=== PATIENT | female | born 1985 | race Caucasian/White ===

== ENCOUNTER 2024-10-11 12:38 | Emergency (ER) | payer BC, SELFPAY ==
--- OUTSIDE RECORDS SUMMARY | 2024-10-11 12:40 | XMS_ITS | Clinical Summary ---
Author Organization [facility] Address [address] , [address] [place] [address] Phone Care Team Providers Care Endoscopy Nurse Name Role Phone Aura Moffett Unavailable Conditions or Problems Problem Name Problem Code Onset Date Status Entry Date Provider Comment Standard Description Annotate Migraine, menstrual 44484076 (SNOMED CT) Active Cory Verdugo MD Menstrual migraine Memory deficit 614353647 (SNOMED CT) Active Cory Verdugo MD Memory impairment Anxiety disorder 516109512 (SNOMED CT) Active Cory Verdugo MD Anxiety disorder Insomnia NEC 275038356 (SNOMED CT) Active Cory Verdugo MD Insomnia Chronic migraine 063704079 (SNOMED CT) Active Cory Verudgo MD Transformed migraine Medications Medication Instructions Start Date Stop Date Generic Name NDC Provider PROPRANOLOL HCL ER 80 MG [id number] 1 capsule or 80 mg/day by mouth propranolol [id number] Cory Verdugo MD TOPIRAMATE 25 MG TABS 1 tablet by mouth as directed : 25 mg per night for 2 weeks; then increase by 25 mg per night every 2 weeks until 100 mg per night or until pain controlled 03/05 topiramate 56120242438 Cory Verdugo MD QULIPTA 10 MG TABS 20 mg per day. May increase by 10 mg every week until 60 mg per day if lower doze not helping atogepant [id number] Cory Verdugo MD NORTRIPTYLINE HCL 75 MG CAPS Take 1 capsule by mouth every evening 03/05 nortriptyline [id number] Cory Verdugo MD SUMATRIPTAN SUCCINATE 100 MG TABS Take 1/2 tablet by mouth as directed as needed : half to 1 tab at onset of headache (STRONG); may repeat in 2 hour as needed; max 1.5 tabs per day; no more than 9 days use per month 03/05 sumatriptan succinate [id number] Cory Verdugo MD ATIVAN 1 MG TABS 1 tablet by mouth as directed : 1 mg 2 hour before MRI. May repeat as needed with 1 mg up to maximum of 3 mg before MRI. No driving or operate heavy machinery for 24 hour after taking this med 03/05 lorazepam [id number] Cory Verdugo MD CYCLOBENZAPRINE HCL 10 MG TABS Take 1 Tablet (10 mg) by mouth 3 times daily if needed for Muscle Spasm (headache).* cyclobenzaprine [id number] Cory Verdugo MD BUPROPION HCL ER (XL) 150 MG [id number] Take 1 Tablet (150 mg) by mouth once daily in the morning.* bupropion hcl [id number] Cory Verdugo MD [id number] FFEINE 50-325-40 MG TABS Take 1 Tablet by mouth every 4 hours if needed for Headache. Max 6 doses per day. Max acetaminophen dose 4000mg in 24 hrs.* butalbital-acetam inophen-caff 93074631290 Cory Verdugo MD TOPIRAMATE 25 MG TABS 1 tablet by mouth as directed : 25 mg per night for 2 weeks; then increase by 25 mg per night every 2 weeks until 100 mg per night or until pain controlled 03/05 topiramate [id number] Cory Verdugo MD NORTRIPTYLINE HCL 75 MG CAPS Take 1 capsule by mouth every evening 03/05 nortriptyline 69004706184 Cory Verdugo MD NORTRIPTYLINE HCL 75 MG CAPS Take 1 capsule by mouth every evening 12/28 nortriptyline [id number] Rosie Chacko BETTY NORTRIPTYLINE HCL 10 MG CAPS 1 capsule by mouth as directed : 20 mg per night; then increase by 10 mg/night every 2 weeks until maximum 70 mg/night or until pain controlled 12/01 nortriptyline 14678625908 Cory Verdugo MD NORTRIPTYLINE HCL 10 MG CAPS 2 capsule by mouth as directed : 20 mg per night; then increase by 10 mg/night every 2 weeks until maximum 70 mg/night or until pain controlled 12/28 nortriptyline 15652552472 Cory Verdugo MD SUMATRIPTAN SUCCINATE 25 MG TABS Take 1 tablet by mouth every two hours as needed 12/01 sumatriptan succinate 09250146254 Cory Verdugo MD NORTRIPTYLINE HCL 10 MG CAPS 1 capsule by mouth as directed : 20 mg per night; then increase by 10 mg/night every 2 weeks until maximum 70 mg/night or until pain controlled 12/01 nortriptyline 49868498504 Cory Verdugo MD SUMATRIPTAN SUCCINATE 100 MG TABS Take 1/2 tablet by mouth as directed as needed : half to 1 tab at onset of headache (STRONG); may repeat in 2 hour as needed; max 1.5 tabs per day; no more than 9 days use per month 03/05 sumatriptan succinate [id number] Cory Verdugo MD ATIVAN 1 MG TABS 1 tablet by mouth as directed : 1 mg 2 hour before MRI. May repeat as needed with 1 mg up to maximum of 3 mg before MRI. No driving or operate heavy machinery for 24 hour after taking this med 03/05 lorazepam [id number] Cory Verdugo MD TRAZODONE HCL 50 MG TABS Take 1-2 tablet every night trazodone 16277116869 Cory Verdugo MD IBUPROFEN 800 MG TABS Take 1 tablet by mouth three times a day as needed IBUPROFEN Cory Verdugo MD SUMATRIPTAN SUCCINATE 25 MG TABS Take 1 tablet by mouth every two hours as needed 12/01 sumatriptan succinate 61095324473 Cory Verdugo MD AZITHROMYCIN 250 MG TABS Take 500 mg today and then 250 mg days 2-5 12/01 azithromycin 44277758188 Cory Verdugo MD SERTRALINE HCL 100 MG TABS Take 2 tablet by mouth once a day sertraline 46724434519 Cory Verdugo MD TRAZODONE HCL 50 MG TABS Take 1-2 tablets at bedtime 12/01 trazodone 38137011369 QIEUSER QIEUSER SUMATRIPTAN SUCCINATE 25 MG TABS Take 1 Tablet (25 mg) by mouth every 2 hours if needed for Migraine. Max dose: 200mg per 24 hrs. 12/01 sumatriptan succinate [id number] QIEUSER QIEUSER SERTRALINE HCL 100 MG TABS TAKE 2 TABLETS [200MG] BY MOUTH ONCE A DAY 12/01 sertraline 93005487992 QIEUSER QIEUSER IBUPROFEN 800 MG TABS Take 1 Tablet (800 mg) by mouth 3 times daily if needed for Pain. 12/01 IBUPROFEN QIEUSER QIEUSER AZITHROMYCIN 250 MG TABS Take 500 mg today and then 250 mg days 2-5 12/23 azithromycin [id number] QIEUSER QIEUSER Medications Administered No information available. Allergies, Adverse Reactions, Alerts No information available. Results Date Name Value Unit Range Flag Description Internal Other: Observation data from Authorization.pdf HIECONSENT Y Consent To Release information to the [employer] ([employer]) Office Visit: Office Visit braulio [place] fax MEDS REVIEW Done Documenta tion of current medications (procedure) Plan of Care Type Date Detail Pending order Follow up [facility] Pending order Follow up [facility] Pending order Patient Instruct ions Pending order Follow up with N eurologist or LEXY Pending order MRI-Brain W/O Pending order Patient Instruct ions Procedures Code Procedure Name Date Entry Date ORDERS Patient Instructions [id number] Documentation of current medicatio ns ORDERS Follow up with Neurologist or LEXY [id number] MRI Brain W/O [id number] MRI-Brain W/O ORDERS Patient Instructions [facility]-[id number] Documentation of current medicatio ns Vital Signs Date Name Value Unit Description Heart Rate 66 /min pulse rate Immunizations No information available. Advance Directives No information available.
--- OUTSIDE RECORDS SUMMARY | 2024-10-11 12:40 | XMS_ITS | Encounter Summary ---
Author Organization [facility] Address [address] [place] [address] Care Team Providers Care Cloth Bleaching Range Back Tender Name Role Phone Brenna Hurd Primary Care Provider [phone] Encounter Details Date Type Department Care Team (Late st Contact Info) Description 09/07/2021 Documentation Only INTERFACED REPORT Unknown, Provider Social History Tobacco Use Types Packs/Day Years Used Date Smoking Tobacco: Never Smokeless Tobacco: Never Alcohol Use Standard Drinks/Week Comments No 0 (1 standard drink = 0.6 oz pur e alcohol) occ Comments No Sex and Gender Information Value Date Recorded Sex Assigned at Not on file 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 No / Unsure 09/06/2021 7:58 PM WHEEL POLISHER documented as of this encounter Plan of Treatment Not on file documented as of this encounter Visit Diagnoses Not on filedocumented in this encounter Care Teams Cloth Bleaching Range Back Tender Relationship Specialty Start Date End Date Brenna Hurd PCP - General 01/27/13 documented as of this encounter
--- OUTSIDE RECORDS SUMMARY | 2024-10-11 12:40 | XMS_ITS | Referral Summary ---
Author Organization [facility] Address [address] [place] [id number] Care Team Providers Care C Unix Developer Name Role Phone [email or web address] Primary Care Provider [phone] Allergies No known active allergies Medications Vit-Fe Fumarate-FA ( MULTIVITAMIN PLUS IRON) 27-0.8 MG TABS Take 1 tablet by mouth daily Active Ranitidine HCl (ZANTAC PO) Active diphenhydrAMINE (BENADRYL) 25 MG tablet Take 1 tablet (25 mg) by mouth every 6 hours as needed for itching 56 tablet 0 5 Active Emollient (CERAVE) LOTN Externally apply topically 4 times daily as needed 355 mL 0 5 Active norethindrone-eth inyl estradiol-iron (ESTROSTEP FE) 1-20/1-30/1-35 MG-MCG TABS Take by mouth daily Active PANTOPRAZOLE SODIUM PO Active Ferrous Sulfate (IRON SUPPLEMENT PO) Active meclizine (ANTIVERT) 25 MG tablet Take 1 tablet (25 mg) by mouth 3 times daily as needed for dizziness 10 tablet 0 5 Active metoclopramide (REGLAN) 10 MG tablet Take 1 tablet (10 mg) by mouth 4 times daily as needed (nausea, headache) 10 tablet 0 5 Active HYDROcodone-aceta minophen (NORCO) 5-325 MG per tablet Take 1-2 tablets by mouth every 6 hours as needed for moderate to severe pain 10 tablet 0 5 Active oxyCODONE (ROXICODONE) 5 MG tablet Take 1-2 tablets (5-10 mg) by mouth every 6 hours as needed for severe pain 10 tablet Active Social History Tobacco Use Types Packs/Day Years Used Date Smoking Tobacco: Never Smokeless Tobacco: Never Alcohol Use Standard Drinks/Week Comments No 0 (1 standard drink = 0.6 oz pur e alcohol) occ Adolescent Education Answer Date Record ed Getting School Help Needed Not on file 06/19 Comments No Sex and Gender Information Value Date Recorded Sex Assigned at Not on file Legal 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 Gender Identity Not on file Sexual Orientation Not on file Last Filed Vital Signs Vital Sign Reading Time Taken Comments Blood Pressure 111/63 09/06/2021 10:24 PM POWERHOUSE OPERATOR Pulse 69 09/06/2021 10:24 PM POWERHOUSE OPERATOR Temperature 36.7 C (98.1 F) 09/06/2021 8:02 PM POWERHOUSE OPERATOR Respiratory Rate 16 09/06/2021 10:24 PM POWERHOUSE OPERATOR Oxygen Saturation 95% 09/06/2021 10:25 PM POWERHOUSE OPERATOR Inhaled Oxygen Concentration - - Weight 75.8 kg (167 lb) 05/26/2015 8:33 PM CDT Height 170.2 cm (5' 7) 05/26/2015 8:33 PM CDT Body Mass Index 26.16 05/26/2015 8:33 PM CDT Plan of Treatment Not on file Insurance [facility] Care Teams C Unix Developer Relationship Specialty Start Date End Date Brenna Hurd [facility] - General 01/27/13
--- OUTSIDE RECORDS SUMMARY | 2024-10-11 12:40 | XMS_ITS | Clinical Summary ---
Author Organization [facility] Address [place], [place] [address] Care Team Providers Care Waste Paper Hammermill Operator Name Role Phone Brenna Hurd MD Primary Care Provide r Sommer Walker RD Unavailable [phone] Allergies No known active allergies Medications cyclobenzaprine (FLEXERIL) 10 mg tabletIndicatio ns:Chronic daily headache Take 1 Tablet (10 mg) by mouth 3 times daily if needed for Muscle Spasm (headache). 30 Tablet 5 03/01/20 24 Active sertraline (ZOLOFT) 100 mg tabletIndicatio ns:Anxiety Take 1 Tablet (100 mg) by mouth once daily. 100 Tablet 3 03/01/20 24 Active buPROPion (WELLBUTRIN XL) 150 mg Extended-Releas e tabletIndicatio ns:Anxiety Take 1 Tablet (150 mg) by mouth once daily in the morning. 90 Tablet 3 03/01/20 24 Active acetaminophen-c affeine-butalbi salome (FIORICET) 325-40-50 mgIndications:M igraine with aura, not intractable, without status migrainosus Take 1 Tablet by mouth every 4 hours if needed for Headache. Max 6 doses per day. Max acetaminophen dose 4000mg in 24 hrs. 20 Tablet 03/01/20 24 Active traZODone (DESYREL) 50 mg tabletIndicatio ns:Anxiety state TAKE ONE OR TWO TABLETS BY MOUTH DAILY AT BEDTIME 180 Tablet 05/30/20 24 Active metFORMIN (GLUCOPHAGE XR) 500 mg Extended-Releas e tabletIndicatio ns:Class 1 obesity with body mass index (BMI) of 30.0 to 30.9 in adult, unspecified obesity type, unspecified whether serious comorbidity present,Insulin resistance Take 1 tablet (500mg) oral daily with a meal for 2 weeks then if tolerating okay increase to 2 tablets (1000mg) oral daily with meal. 180 Tablet 08/17/20 24 Active cholecalciferol (VITAMIN D3) 50,000 unit capsuleIndicati ons:Vitamin D deficiency Take 1 Capsule (50,000 units) by mouth once weekly for 8 doses. 8 Capsule 08/03/20 24 025 Active Problems Problem Noted Date Diagnosed Date Generalized anxiety disorder 11/11/2017 Low grade squamous intraepit helial lesion (LGSIL) on Papanicolaou smear of cervix 06/15/2012 Overview (08/25/2022): 06/15/2012: LSIL 07/27/2012: [place] - Suspicious for HPV 07/19/2013: NIL 06/25/2014: ASCUS / HPV negative 04/15/2015: NIL 07/16/2016: NIL 10/21/2017: NIL/HPV negative 07/22/2022: NIL/HPV negative Plan: Pap and HPV 07/2025 Mild anemia 05/13/2011 Headache(784.0) 06/27/2007 Resolved Problems Problem Noted Date Diagnosed Date Resolved Date Supervision of normal first 07/25/2014 11/11/2017 Overview (12/10/2014): Tdap given 12/10/2014. Dr. Nuno to deliver patient. Anxiety state, unspecified 06/27/2007 0 11/11/2017 Encounters Date Type Department Care Team Description 10/11/2024 Nurse Triage [facility] [address] [place] [address] Brenna Hurd MD Diarrhea; Abdominal Pain 10/05/2024 1:00 PM CLOSING MANAGER Telemedicine [facility] [place] [address] [place] [address] Teresa Sabillon PA Telehealth; Follow Up ([facility] follow up ) 10/02/2024 Travel 09/18/2024 3:00 PM CLOSING MANAGER [facility] [address] [place] [address] Telehealth ([facility] follow up) 09/17/2024 Travel 08/17/2024 2:30 PM CLOSING MANAGER Telemedicine [facility] [place] [address] [place] [phone] Teresa Sabillon PA Telehealth; Follow Up ([facility] follow up ) 08/12/2024 Travel 08/07/2024 Telephone [facility] [place] [address] [place] [phone] Kristin Perez [address] Follow Up 08/01/2024 9:15 AM CLOSING MANAGER Orders Only [facility] [place] [address] [address] Lab, Farm Lab 07/31/2024 Travel 07/24/2024 Telephone [facility] [place] [address] [place] [phone] Teresa Sabillon PA Weight Management 07/18/2024 10:00 AM CLOSING MANAGER Telemedicine [facility] [place] [address] [place] [phone] [address] Medical Nutrition Therapy ([facility] initial, telehealth) 07/18/2024 9:00 AM CLOSING MANAGER Telemedicine [facility] [place] [address] [place] [phone] Teresa Sabillon PA Telehealth; Follow Up (Initial [facility] ) 07/17/2024 Travel from Last 3 Months Immunizations Name Administration Dates Next Due COVID-19 vaccine (Qeexo-Bio NTMobcart 30mcg/0.3mL) 12YO+ BIVALENT PF, MDV 07/22/2022 Human Papilloma Virus Vaccine 09/03/2008, 007 Influenza, IIV4 07/04/2022,,07/29/2020, 016,07/25/2014 Tdap 12/10/2014,09/03/2008 Family History Medical History Relation Name Comments Diabetes Father Geo Heart Disease Father Goe Heart attack, age 50s Cancer Maternal Grandfather Alex bladder Cancer-colon Maternal Grandfather Alex Cancer Maternal Grandmother Indu Unknown Diabetes Maternal Grandmother Indu Diabetes Maternal Uncle Anxiety disorder Mother Rubieatiffany Depression Mother Zoeatiffany Cancer-breast Paternal Grandmother Relation Name Status Comments Father Geo Alive Maternal Grandfather Alex Alive Maternal Grandmother Morjie Alive Maternal Uncle Mother Zoeann Alive Paternal Grandfather Paternal Grandmother (Age 40) Ca ncer-Breast Sister Mabel Alive Social History Tobacco Use Types Packs/Day Years Used Date Smoking Tobacco: Never Smokeless Tobacco: Never Tobacco Cessation:Counseling Given: Yes Alcohol Use Standard Drinks/Week Comments Yes 0 (1 standard drink = 0.6 oz pur e alcohol) 1x/month [facility] Utilities Answer Date Recorded Do you have trouble paying f or utilities (for example, heat, electricity, water, phone)? Yes 08/31/2023 PHQ-2 Answer Date Recorded PHQ-2 TOTAL SCORE 3 03/01/2024 Social Connections Answer Date Recorded Do you often feel lonely or isolated from those around you? 0 08/31/2023 Financial Resource Strain Answer Date R ecorded Difficulty of Paying Living Expenses 3 08/31/2023 Difficulty of Paying Living Expenses Not on file 08/31/2023 Food Insecurity Answer Date Recorded Do you worry your food will run out before you are able to buy more? 1 08/31/2023 Transportation Needs Answer Date Record ed Does lack of transportation keep you from medica l appointments? 1 08/31/2023 Does lack of transportation keep you from work, meetings or getting things that you need? 1 08/31/2023 Housing Stability Answer Date Recorded What is your housing situation today? 1 08/31/2023 Comments No Sex and Gender Information Value Date Recorded Sex Assigned at Not on file Legal Sex Female 5:44 AM CLOSING MANAGER Gender Identity Not on file Sexual Orientation Not on file Occupation Industry Job Start Date Job End Date Not on file Not on file Not on file Not on file Obstetrics History Para Term AB IAB SAB Ectopic Multiple Livin g Live Births 1 1 1 Date Outcome GA Total Labor Labor/2nd/3rd Weight Sex Type Anes PTL Priscilla A1 A5 Name Clin Para Last Filed Vital Signs Vital Sign Reading Time Taken Comments Blood Pressure 113/73 03/01/2024 2:58 PM CDT Pulse 74 03/01/2024 2:58 PM CDT Temperature 36.7 C (98 F) 08/31/2023 10:05 AM CLOSING MANAGER Respiratory Rate 16 08/31/2023 10:05 AM CLOSING MANAGER Oxygen Saturation 99% 03/01/2024 2:58 PM CDT Inhaled Oxygen Concentration - - Weight 90.3 kg (199 lb) 10/05/2024 12:43 PM CLOSING MANAGER Height 167.6 cm (5' 5.98) 10/05/2024 12:[address] Body Mass Index 32.14 10/05/2024 12:43 PM CLOSING MANAGER Plan of Treatment Upcoming Encounters Date Type Department Care Team (Late st Contact Info) Description 10/23/2024 10:00 AM CLOSING MANAGER Telemedicine [facility] [address] [place] [address] [place] [address] 11/23/2024 1:00 PM CDT Telemedicine [facility] [place] [address] [place] [phone] Teresa Sabillon PA [address] [place] [address] Health Maintenance Due Date Last Done Comments COVID-19 vaccine series ( season) 2024 07/22/2022, 07/02/2021, 06/02/2021 Influenza for age 9-49 05/13/2024 2, 06/02/2021, 07/29/2020, Additional history exists Tetanus booster 12/10/2024 12/10/2014, 09/03/2008 Depression screening for age 12+ 03/01/2025 03/01/2024, 07/22/2022, 05/01/2020, Additional history exists Pap test for age 21-65 07/22/2025 2, 07/22/2022, 10/21/2017, Additional history exists BMI (ht and wt on same day) for age 18+ 10/05/2025 10/05/2024, 09/18/2024, 08/17/2024, Additional history exists HIV for age 15-65 Completed 06/21/2014 Hepatitis C screening for age 18-79 Completed 06/21/2014 Tdap Completed 12/10/2014, 09/03/2008 Pneumococcal series for age 6-49 Aged Out No longer eligible based on patient's age to complete this topic Procedures Procedure Name Priority Date/Time Associated Diagnosis Comments LIPID PANEL W REFLEX MEASURED LDL Routine 08/01/2024 8:58 AM CLOSING MANAGER Class 1 obesity with body mass index (BMI) of 30.0 to 30.9 in adult, unspecified obesity type, unspecified whether serious comorbidity present Screening for metabolic disorder VITAMIN D 25 (DEFICIENCY) Routine 08/01/2024 8:58 AM CLOSING MANAGER Class 1 obesity with body mass index (BMI) of 30.0 to 30.9 in adult, unspecified obesity type, unspecified whether serious comorbidity present Encounter for vitamin deficiency screening INSULIN Routine 08/01/2024 8:58 AM CLOSING MANAGER Class 1 obesity with body mass index (BMI) of 30.0 to 30.9 in adult, unspecified obesity type, unspecified whether serious comorbidity present Screening for metabolic disorder TSH WITH REFLEX Routine 08/01/2024 8:58 AM CLOSING MANAGER Class 1 obesity with body mass index (BMI) of 30.0 to 30.9 in adult, unspecified obesity type, unspecified whether serious comorbidity present Screening for metabolic disorder COMP METABOLIC PANEL Routine 08/01/2024 8:58 AM CLOSING MANAGER Class 1 obesity with body mass index (BMI) of 30.0 to 30.9 in adult, unspecified obesity type, unspecified whether serious comorbidity present Screening for metabolic disorder HEMOGLOBIN Routine 08/01/2024 8:58 AM CLOSING MANAGER Class 1 obesity with body mass index (BMI) of 30.0 to 30.9 in adult, unspecified obesity type, unspecified whether serious comorbidity present HEMOGLOBIN A1C Routine 08/01/2024 8:58 AM CLOSING MANAGER Class 1 obesity with body mass index (BMI) of 30.0 to 30.9 in adult, unspecified obesity type, unspecified whether serious comorbidity present VITAMIN B12 Routine 08/01/2024 8:58 AM CLOSING MANAGER Class 1 obesity with body mass index (BMI) of 30.0 to 30.9 in adult, unspecified obesity type, unspecified whether serious comorbidity present Encounter for vitamin deficiency screening HPV HIGH RISK Routine 07/22/2022 9:20 AM CLOSING MANAGER Screening for cervical cancer ANTI HIV 1/2 Routine 06/21/2014 3:17 PM CDT ANTI HCV Routine 06/21/2014 3:17 PM CDT from Last 3 Months or Most Recently Relevant to Health Maintenance Results * HEMOGLOBIN A1C (08/01/2024 8:58 AM CLOSING MANAGER) HEMOGLOBIN A1C 5.4 <5.7 % of total Hgb [facility] Comment: For the purpose of screening for the presence of diabetes: <5.7% Consistent with the absence of diabetes 5.7-6.4% Consistent with increased risk for diabetes (prediabetes) > or =6.5% Consistent with diabetes This assay result is consistent with a decreased risk of diabetes. Currently, no consensus exists regarding use of hemoglobin A1c for diagnosis of diabetes in children. According to [place] Diabetes Association (ADA) guidelines, hemoglobin A1c <7.0% represents optimal control in non- diabetic patients. Different metrics may apply to specific patient populations. Standards of Medical Care in Diabetes(ADA). Blood BLOOD SPECIMEN / Unknown 08/01/2024 8:58 AM CLOSING MANAGER 08/01/2024 8:58 AM CLOSING MANAGER Teresa MORA CHEMISTRY Final Result [facility] [address] [place] [address], [facility] [address] [place] [address] * TSH WITH REFLEX (08/01/2024 8:58 AM CLOSING MANAGER) TSH W/REFLEX TO FT4 1.56 mIU/L [facility] caridad Valerio Comment: Reference Range > or = 20 Years 0.40-4.50 Ranges First trimester 0.26-2.66 Second trimester 0.55-2.73 Third trimester 0.43-2.91 Blood BLOOD SPECIMEN / Unknown 08/01/2024 8:58 AM CLOSING MANAGER 08/01/2024 8:58 AM CLOSING MANAGER Teresa MORA CHEMISTRY Final Result [facility] [address] [place] [address], [facility] [address] [place] [address] * (ABNORMAL) LIPID PANEL W REFLEX MEASURED LDL (08/01/2024 8:58 AM CLOSING MANAGER) CHOLESTEROL, TOTAL 176 <200 mg/dL [facility] ocaridad Sharmae HDL CHOLESTEROL 47(L) > OR = 50 mg/dL [facility] o Teodoro TRIGLYCERIDES 158(H) <150 mg/dL [facility] LDL-CHOLESTEROL 104(H) mg/dL (calc) [facility] o[facility] Sharmae Comment: Reference range: <100 Desirable range <100 mg/dL for primary prevention; <70 mg/dL for patients with CHD or diabetic patients with > or = 2 CHD risk factors. LDL-C is now calculated using the Ewa calculation, which is a validated novel method providing better accuracy than the Friedewald equation in the estimation of LDL-C. Juan Carlos WYNNE et al. LAITH. 2013;310(19): 9248-3956 (http://education.letsmote.com.BeneStream/faq/FOH714) CHOL/HDLC RATIO 3.7 <5.0 (calc) [facility] shital Valerio NON HDL CHOLESTEROL 129 <130 mg/dL (calc) [facility] Valerio Comment: For patients with diabetes plus 1 major ASCVD risk factor, treating to a non-HDL-C goal of <100 mg/dL (LDL-C of <70 mg/dL) is considered a therapeutic option. Blood BLOOD SPECIMEN / Unknown 08/01/2024 8:58 AM CLOSING MANAGER 08/01/2024 8:58 AM CLOSING MANAGER us Teresa MORA CHEMISTRY Final Result Performing Organization Address [facility] Co de Phone Number [facility] [address] [place] [address], [facility] [address] [place] [phone] * (ABNORMAL) VITAMIN D 25 (DEFICIENCY) (08/01/2024 8:58 AM CLOSING MANAGER) VITAMIN D,25-OH,TOTAL,IA 20(L) 30 - 100 ng/mL [facility] Valerio Comment: Vitamin D Status 25-OH Vitamin D: Deficiency: <20 ng/mL Insufficiency: 20 - 29 ng/mL Optimal: > or = 30 ng/mL For 25-OH Vitamin D testing on patients on D2-supplementation and patients for whom quantitation of D2 and D3 fractions is required, the Quest[facility]() 25-OH VIT D, (D2,D3), LC/MS/MS is recommended: order code [id number] (patients >2yrs). See Note 1 Note 1 For additional information, please refer to http://education.letsmote.com.BeneStream/faq/SBS885 (This link is being provided for informational/ educational purposes only.) Blood BLOOD SPECIMEN / Unknown 08/01/2024 8:58 AM CLOSING MANAGER 08/01/2024 8:58 AM CLOSING MANAGER us Teresa MORA SEND OUTS Final Result Performing Organization Address [facility]/ZIP Co de Phone Number [facility] [address] [place] [address], [place] [phone] [facility] [address] [facility] [place] [address] * HEMOGLOBIN (08/01/2024 8:58 AM CLOSING MANAGER) [facility] HEMOGLOBIN 12.1 11.7 - 15.5 g/dL [facility] reynaldo Valerio Blood BLOOD SPECIMEN / Unknown 08/01/2024 8:58 AM CLOSING MANAGER 08/01/2024 8:58 AM CLOSING MANAGER us Teresa MORA HEMATOLOGY Final Result Performing Organization Address [facility]/ZIP Co de Phone Number [facility] [address] [facility] [address], [facility] [address] [place] [address] * (ABNORMAL) INSULIN (08/01/2024 8:58 AM CLOSING MANAGER) [facility] INSULIN 21.3(H) uIU/mL [facility] Te[facility] Comment: Reference Range < or = 18.4 Risk: Optimal < or = 18.4 Moderate NA High >18.4 Adult cardiovascular event risk category cut points (optimal, moderate, high) are based on Insulin Reference Interval studies performed at [facility] in 2021. Blood BLOOD SPECIMEN / Unknown 08/01/2024 8:58 AM CLOSING MANAGER 08/01/2024 8:58 AM CLOSING MANAGER us Teresa MORA SEND OUTS Final Result [facility] [address] [place] [address], [facility] [address] [place] [address] * VITAMIN B12 (08/01/2024 8:58 AM CLOSING MANAGER) [facility] VITAMIN B12 325 200 - 1,100 pg/mL [facility] Comment: Please Note: Although the reference range for vitamin B12 is 200-1100 pg/mL, it has been reported that between 5 and 10% of patients with values between 200 and 400 pg/mL may experience neuropsychiatric and hematologic abnormalities due to occult B12 deficiency; less than 1% of patients with values above 400 pg/mL will have symptoms. Blood BLOOD SPECIMEN / Unknown 08/01/2024 8:58 AM CLOSING MANAGER 08/01/2024 8:58 AM CLOSING MANAGER Teresa MORA CHEMISTRY Final Result [facility] [address] [place] [address], [facility] [address] [place] [address] * COMP METABOLIC PANEL (08/01/2024 8:58 AM CLOSING MANAGER) [facility] GLUCOSE 90 65 - 99 mg/dL [facility] Comment: Fasting reference interval UREA NITROGEN (BUN) 11 7 - 25 mg/dL [facility] CREATININE 0.78 0.50 - 0.99 mg/dL [facility] EGFR 98 > OR = 60 mL/min/1. 73m2 [facility] BUN/CREATININE RATIO SEE NOTE: 6 22 (calc) [facility] Comment: Not Reported: BUN and Creatinine are within reference range. SODIUM 139 135 - 146 mmol/L [facility] POTASSIUM 4.0 3.5 - 5.3 mmol/L [facility] CHLORIDE 104 98 - 110 mmol/L [facility] CARBON DIOXIDE 29 20 - 32 mmol/L [facility] CALCIUM 8.6 8.6 - 10.2 mg/dL [facility] PROTEIN, TOTAL 6.7 6.1 - 8.1 g/dL [facility] ALBUMIN 4.2 3.6 - 5.1 g/dL [facility] GLOBULIN 2.5 1.9 - 3.7 g/dL (calc) [facility] ALBUMIN/GLOBULIN RATIO 1.7 1.0 - 2.5 (calc) [facility] BILIRUBIN, TOTAL 0.3 0.2 - 1.2 mg/dL [facility] ALKALINE PHOSPHATASE 76 31 - 125 U/L [facility] AST 13 10 - 30 U/L [facility] ALT 11 6 - 29 U/L [facility] Blood BLOOD SPECIMEN / Unknown 08/01/2024 8:58 AM CLOSING MANAGER 08/01/2024 8:58 AM CLOSING MANAGER us Teresa MORA CHEMISTRY Final Result Performing Organization Address [facility]/ZIP Co de Phone Number [facility] [address] [place] [address], [facility] [address] [place] [address] * HPV HIGH RISK (07/22/2022 9:20 AM CLOSING MANAGER) TYPE 16 Negative Negative 07/24/2022 12:43 PM CLOSING MANAGER [facility] LABORAT[facility] TYPE 18 Negative Negative 07/24/2022 12:43 PM CLOSING MANAGER [facility] LAB[facility] OTHER HIGH RISK TYPES Negative Negative 07/24/2022 12:43 PM CLOSING MANAGER [facility] TR[facility] LAB[facility]ORY Other (Cervical) Non-Blood / Unknown 07/22/2022 9:20 AM CLOSING MANAGER 07/23/2022 8:26 AM CLOSING MANAGER Narrative [facility] - 07/24/2022 12:43 PM CLOSING MANAGER HPV types 16, 18, 31, 33, 35, 39, 45, 51, 52, 56, 58, 59, 66 and 68 DNA were undetectable or below the pre-set threshold. Methodology: Accedo Liu 4800 HPV Test us Brenna Hurd MD MICROBIOLOGY Final Result [facility] [address] [place] [address], [place] * ANTI HCV (06/21/2014 3:17 PM CDT) HEPATITIS C ANTIBODY Non-Reacti ve Non-Reacti ve 06/22/2014 4:00 PM CDT [facility] TRAL LABORATORY Blood specimen (specimen) BLOOD SPECIMEN / Unknown Venipuncture / Unknown 06/21/2014 3:17 PM CDT 06/21/2014 3:18 PM CDT [facility] LABORATORY - 06/22/2014 4:00 PM CDT Antibodies to HCV not detected; does not exclude the possibility of exposure to HCV. Massiel MORA SEND OUTS Final R esult [facility] [address] [place] [address], [place] * ANTI HIV 1/2 (06/21/2014 3:17 PM CDT) Pathologist [facility] HIV-1/HIV-2 ANTIBODY Non-Reacti ve Non-Reacti ve 06/21/2014 8:58 PM CDT [facility] TRAL LABORATORY Blood specimen (specimen) BLOOD SPECIMEN / Unknown Venipuncture / Unknown 06/21/2014 3:17 PM CDT 06/21/2014 3:18 PM CDT Narrative [facility] - 06/21/2014 8:58 PM CDT HIV-1 p24 and HIV-1/HIV-2 Ab not detected Massiel MORA SEND OUTS Final R esult [facility] [address] [place] [id number], [place] from Last 3 Months or Most Recently Relevant to Health Maintenance Insurance [employer] Care Teams Waste Paper Hammermill Operator Relationship Specialty Start Date End Date Brenna Hurd MD [address] [place] [address] PCP - General 10/11/[address] [place] [address] Registered Dietitian Route Cdl Driver 07/18/24
--- OUTSIDE RECORDS SUMMARY | 2024-10-11 12:40 | XMS_ITS | Clinical Summary ---
Author Organization [facility] Address [address] [place] [address] Care Team Providers Care Front Maker Lockstitch Name Role Phone NelsoncliftonerikaBrenna Primary Care Provider [phone] Allergies No known active allergies Medications Vit-Fe [...] on file Legal Sex Female 3:15 AM RECORDING CLERK Gender Identity Not on file Sexual Orientation Not on file Last Filed Vital Signs Vital Sign Reading Time Taken Comments Blood Pressure 111/63 09/06/2021 10:24 PM RECORDING CLERK Pulse 69 09/06/2021 10:24 PM RECORDING CLERK Temperature 36.7 C (98.1 F) 09/06/2021 8:02 PM RECORDING CLERK Respiratory Rate 16 09/06/2021 10:24 PM RECORDING CLERK Oxygen Saturation 95% 09/06/2021 10:25 PM RECORDING CLERK Inhaled Oxygen Concentration - - Weight 75.8 kg (167 lb) 05/26/2015 8:33 PM CDT Height 170.2 cm (5' 7) 05/26/2015 8:33 PM CDT Body Mass Index 26.16 05/26/2015 8:33 PM CDT Plan of Treatment Not on file Insurance [facility] Care Teams Front Maker Lockstitch Relationship Specialty Start Date End Date Brenna Hurd [facility] - General 01/27/13
[2024-10-11 13:01] VITALS: BP 129/92; PULSE 77; RESP 18; TEMP 37.1; O2SAT 96; BMI 32.1
--- NOTE | 2024-10-11 14:13 | ED.GENADULT ---
HPI - General Adult General Date Seen: 10/11/24 Chief complaint: Abdominal Pain Stated complaint: Abdominal Pain Time Seen by Provider: 10/11/24 14:11 History of Present Illness HPI narrative: Pleasant 39-year-old female with a past medical history of patellofemoral knee disease, depression, presenting to the ER today for abdominal pain and diarrhea. She does note that she has some chronic trouble with loose stools that is been going on at least 9 or 10 years, since before the of her son. She has never been formally diagnosed with inflammatory bowel disease or irritable bowel syndrome or any other specific problem. She wonders if she might have IBS For the past 3 days she has had a new acute illness that includes increased diarrhea with frequent very loose watery stools. No bloody or mucousy stools. No nausea or vomiting. No objective fevers but she has felt chilled and warm from time to time. Along with this she has had intermittent crampy abdominal pain. The pain was primarily middle an epigastric and fairly severe last night but then got better and she was able to go to sleep. Pain was feeling better when she woke up this morning but then got worse mid morning. No clear trigger. No relationship to eating or drinking. The pain is throughout her abdomen. Not she has been here in the ER the pain is actually subsiding is back down to a 4/10 Urination has been normal. Related Data Home Medications ?Medication ?Instructions ?Recorded ?Confirmed sertraline 100 mg tablet 200 mg PO QDAY 07/29/22 10/11/24 trazodone 50 mg tablet 50 mg PO QHS 07/29/22 10/11/24 bupropion HCl 150 mg 24 hr tablet, 150 mg PO QAM 10/11/24 10/11/24 extended release metformin 500 mg tablet,extended 1,000 mg PO DAILY 10/11/24 10/11/24 release 24 hr omeprazole 20 mg capsule,delayed 20 mg PO DAILY 10/11/24 10/11/24 release propranolol 80 mg capsule,24 80 mg PO DAILY 10/11/24 10/11/24 hr,extended release Previous Rx's ?Medication ?Instructions ?Recorded ciprofloxacin HCl 500 mg tablet 500 mg PO BID #10 tabs 10/11/24 (Cipro) hydrocodone 5 mg-acetaminophen 325 1 tab PO Q6H PRN pain #10 tabs 10/11/24 mg tablet Allergies Allergy/AdvReac Type Severity Reaction Status Date / Time Penicillins AdvReac Nausea Verified 10/11/24 13:05 [facility] Medical History (Updated 10/11/24 @ 17:31 by Reid Ruffin MD) Anxiety ?F41.9 - Anxiety disorder, unspecified (ICD-10) Surgical History (Updated 07/29/22 @ 16:07 by Augusta Mahoney ~ [facility]) History of surgery on left wrist (09/05/21) ?Z98.890 - Other specified postprocedural states (ICD-10) H/O myringotomy ?Z98.890 - Other specified postprocedural states (ICD-10) History of tonsillectomy ?Z90.89 - Acquired absence of other organs (ICD-10) History of bilateral salpingectomy (11/16/17) ?Z90.79 - Acquired absence of other genital organ(s) (ICD-10) Family History (Updated 07/29/22 @ 16:07 by Augusta Mahoney ~ [facility], [facility]) Father Diabetes Social History (Updated 07/29/22 @ 16:05 by Augusta Mahoney ~ [facility], [facility]) Smoking Status: Never smoker Do you use any of these nicotine containing products: None Second hand tobacco smoke exposure: No How often do you have a drink containing alcohol: never How often do you have six or more drinks on one occasion: Never AUDIT-C Alcohol total score: 0 Non-prescribed substance use: denies use Exam Narrative: Exam Narrative: Constitutional: Appears well-developed and well-nourished. Alert. Conversant. Non toxic. HENT: Head: Atraumatic. Nose: Nose normal. Mouth/Throat: Oral mucosa is clear and moist. no trismus. Pharynx normal. Tonsils symmetric. No tonsillar enlargement, erythema, or exudate. Eyes: Conjunctivae normal. EOM normal. Pupils equal, round, and reactive to light. No scleral icterus. Neck: Normal range of motion. Neck supple. No tracheal deviation present. Cardiovascular: Normal rate, regular rhythm. No gallop. No friction rub. No murmur heard. Symmetric radial artery pulses Pulmonary/Chest: Effort normal. No stridor. No respiratory distress. No wheezes. No rales. No rhonchi . No tenderness. Abdominal: Soft. Bowel sounds normal. No distension. No mass. Left lower quadrant and left mid abdominal tenderness> right upper quadrant tenderness. No Robles sign. No flank tenderness. No right lower quadrant tenderness.. No rebound. No guarding. Musculoskeletal: RUE: Normal range of motion. No tenderness. No deformity LUE: Normal range of motion. No tenderness. No deformity RLE: Normal range of motion. No edema. No tenderness. No deformity LLE: Normal range of motion. No edema. No tenderness. No deformity Neurological: Alert and oriented to person, place, and time. Normal strength. CN II-VII intact. No sensory deficit. GCS eye subscore is 4. GCS verbal subscore is 5. GCS motor subscore is 6. Normal coordination Skin: Skin is warm and dry. No rash noted. No pallor. Normal capillary refill. Psychiatric: Normal mood. Normal affect. Const: Vital Signs, click to edit/add: Vital Signs - 24 hr 10/11/24 13:01 10/11/24 16:16 Temperature 98.8 F Pulse Rate [Pulse Oximeter] 77 69 Respiratory Rate 18 16 Blood Pressure [[facility] Upper Arm] 129/92 H 104/54 L Pulse Oximetry 96 99 Oxygen Delivery Me thod Room Air Room Air Course Course ED Course: Recheck-says her cramps and pain are improved, not completely gone the. Repeat evaluation still reveals mild left lower quadrant tenderness. No right lower quadrant tenderness. Mild upper tenderness. Still no guarding rebound or Robles sign in the upper quadrant Vital Signs Vital signs: Initial Vital Signs Temperature 98.8 F 10/11/24 13:01 Temperature Source Temporal Artery Scan 10/11/24 13:01 Pulse Rate 77 10/11/24 13:01 Respiratory Rate 18 10/11/24 13:01 Blood Pressure 129/92 H 10/11/24 13:01 Blood Pressure Mean 104 10/11/24 13:01 Blood Pressure Position Sitting 10/11/24 13:01 Pulse Oximetry 96 10/11/24 13:01 Oxygen Delivery Method Room Air 10/11/24 13:01 Vital Signs Temperature 98.8 F 10/11/24 13:01 Pulse Rate 77 10/11/24 13:01 Respiratory Rate 18 10/11/24 13:01 Blood Pressure 129/92 H 10/11/24 13:01 Pulse Oximetry 96 10/11/24 13:01 Oxygen Delivery Method Room Air 10/11/24 13:01 Temperature 98.8 F 10/11/24 13:01 Pulse Rate 69 10/11/24 16:16 Respiratory Rate 16 10/11/24 16:16 Blood Pressure 104/54 L 10/11/24 16:16 Pulse Oximetry 99 10/11/24 16:16 Oxygen Delivery Method Room Air 10/11/24 16:16 Medications Administered Medications: Discontinued Medications Generic Name Dose Route Start Last Admin Trade Name Tamanna PRN Reason Stop Dose Admin Sodium Chloride 500 mls @ 500 mls/hr 10/11/24 14:27 10/11/24 15:27 0.9 % Sodium Chloride 500 Ml IV 10/11/24 15:26 Infused .Q1H ONE Infusion Ketorolac Tromethamine 15 mg 10/11/24 14:27 10/11/24 14:39 Ketorolac 15 Mg/Ml Inj IVP 10/11/24 14:28 15 mg ONCE ONE Administration Ondansetron HCl 4 mg 10/11/24 14:27 10/11/24 15:27 Ondansetron 2 Mg/Ml Inj IVP 10/11/24 14:28 Not Given ONCE ONE Medical Decision Making MDM Narrative Medical decision making narrative: This patient presents with watery diarrhea and crampy abdominal pain located in the left lower quadrant, left mid abdomen, also epigastrium and right upper quadrant. The patient's symptoms and exam could be consistent with a viral GI infection. There is no high fever, bilious or bloody emesis, blood or mucous in the stool. However with her severity of pain, consider bacterial enteritis, colitis, diverticulitis, among others. Although she does have some tenderness in the right upper quadrant, she is more tender in the left lower quadrant. I have less suspicion for cholecystitis or gallbladder pathology. No recent travel or high risk exposure for baceraial pathogen. No recent antibiotics or risk factors for C. diff. I don't see any evidence for appendicitis, bowel obstruction, abscess, bowel perforation, or other surgical emergency. Labs show no concerning electrolyte disturbance or renal failure. CT scan shows indeterminate findings. She does have signs of an incidental right ovarian cyst with possible rupture. However she is not having any pain in the right lower quadrant. I do not think she needs any immediate gynecologic evaluation for this. She also has some nonspecific fluid or possible signs of mild colitis in her left colon which certainly could correlate with her diarrhea and symptoms. After meds given the patient is feeling better. At this point, the patient is non-septic appearing and well hydrated.I think the patient can be managed as an outpatient. At this point unclear if her colitis could be infectious (most likely) or autoimmune. She does report that she has a history of about 10 years of intermittent loose stools but has never had GI workup or evaluation for Crohn's. Her diarrhea has stopped while she is here in the ER. I will order an outpatient stool culture, so that if symptoms persist, she can bring a sample back to test for infectious etiologies. She will need outpatient follow-up with PCP to arrange colonoscopy a symptoms persist. Will start her empiric Cipro for potential bacterial enteritis. We have discussed oral rehydration strategies. They understand and can perform the needed interventions at home. We have discussed the signs and symptoms of worsening dehydration. They understand the need for immediate reevaluation if any of these symptoms occur. They are also directed to obtain close outpatient follow up within 2-3 days. Lab Data Labs: Lab Results 10/11/24 Range/Units 14:38 WBC 15.89 H (4.50-11.00) K/uL RBC 4.91 (4.00-5.20) m/uL Hgb 13.4 (12.0-16.0) gm/dL Hct 40.1 (33.0-51.0) % MCV 82 (80-100) fL MCH 27 (26-34) pg MCHC 33 (32-36) gm/dL RDW Coeff of Brian 12.9 (11.5-15.5) % Plt Count 299 (140-440) K/uL Neut % (Auto) 73.6 H (42.0-72.0) % Lymph % (Auto) 13.0 L (20-44) % [place] % (Auto) 4.5 (0.0-11.0) % Eos % (Auto) 8.6 H (0.0-7.0) % Baso % (Auto) 0.2 (0.0-3.0) % Neut # (Auto) 11.70 H (1.7-7.0) K/uL Lymph # (Auto) 2.10 (0.90-2.90) K/uL [place] # (Auto) 0.70 (0.00-0.90) K/UL Eos # (Auto) 1.40 H (0.00-0.50) K/uL Baso # (Auto) 0.00 (0.00-0.30) K/uL Abs Immat Gran (auto) 0.00 (0.00-0.30) K/uL Imm/Tot Granulo (auto) 0.1 % Sodium 139 (135-149) mmol/L Potassium 3.3 L (3.6-5.1) mmol/L Chloride 106 (96-114) mmol/L Carbon Dioxide 18 L (20-32) mmol/L Anion Gap 15 (7-15) mEq/L BUN 8 (5-24) mg/dL Creatinine 0.7 (0.5-1.5) mg/dL Estimated Creat Clear 99.01 Estimated GFR 111 ml/min Glucose 104 (60-115) mg/dL Calcium 9.0 (8.4-10.6) mg/dL Total Bilirubin 0.3 (0.1-1.5) mg/dL AST 18 (12-35) U/L ALT 15 (4-35) U/L Alkaline Phosphatase 67 (40-150) U/L Total Protein 7.5 (6.0-8.3) g/dL Albumin 4.6 (3.3-5.0) g/dL Lipase 59 (23-300) U/L HCG, Qual Negative (Negative) Imaging Data CT scan - abdomen: Attestation: I have reviewed the pertinent imaging results. Radiologist's impression: Impression: 1. Demonstration of somewhat loculated fluid and physiologic fluid within the right adnexa and cul-de-sac which may represent ovarian cystic and/or physiologic follicular rupture changes. If there remains persistent concern for ongoing pelvic pathology follow-up with pelvic sonogram is recommended. 2. Nonspecific fluid seen within the proximal colon which could represent minimal colitis change. No overt pericolonic inflammatory change is identified. 3. No other acute intra-abdominal abnormality. Discharge Plan Discharge Clinical Impression: Abdominal pain, Diarrhea Patient Disposition: Home, Self-Care Condition: Stable Instructions: Acute Diarrhea (ED), Abdominal Pain (ED) Additional Instructions: As we discussed, if you have more diarrhea at home, please bring a stool sample back to the hospital laboratory for testing to see if you have bacterial causes of your diarrhea Use the pain medication if needed for pain. Start on the antibiotics today to help treat in case this is a bacterial infection If you are not getting better within 24-48 hours, please recheck with your doctor or come back to the ER to be recent if you have worsening symptoms such as high fever, bloody stool, worsening pain, vomiting, weakness, please come back to the emergency room right away. Prescriptions: New ciprofloxacin HCl [Cipro] 500 mg tablet 500 mg PO BID Qty: 10 0RF hydrocodone-acetaminophen 5-325 mg tablet 1 tab PO Q6H PRN (Reason: pain) Qty: 10 0RF No Action sertraline 100 mg tablet 200 mg PO QDAY Patient Comments: TAKE TWO TABLETS BY MOUTH DAILY trazodone 50 mg tablet 50 mg PO QHS Patient Comments: TAKE 1 OR 2 TABLETS BY MOUTH AT BEDTIME metformin 500 mg tablet extended release 24 hr 1,000 mg PO DAILY Patient Comments: Take 1 tablet (500mg) by mouth daily with a meal for 2 weeks then if tolerating okay increase to 2 tablets (1000mg) daily with meal.* propranolol 80 mg capsule,extended release 24 hr 80 mg PO DAILY bupropion HCl 150 mg tablet extended release 24 hr 150 mg PO QAM omeprazole 20 mg capsule,delayed release(DR/EC) 20 mg PO DAILY Follow Up/Referrals: Brenna Hurd MD [Primary Care Provider] - Stand Alone Forms: [employer] Info Instructions
[2024-10-11] MEDS: 0.9 % SODIUM CHLORIDE 500 ML 500 ML IV (14:39)
[2024-10-11] MEDS: KETOROLAC 15 MG/ML inj IVP (14:39)
[2024-10-11 14:52] LABS: Basophils Percent Auto 0.2 % (0.0-3.0); Eosinophils Percent Auto 8.6 % (0.0-7.0); Hematocrit 40.1 % (33.0-51.0); Hemoglobin* 13.4 gm/dL (12.0-16.0); Immature Granulocytes Pct Auto 0.1 %; Mean Corpuscular HGB Conc 33 gm/dL (32-36); Mean Corpuscular Hemoglobin 27 pg (26-34); Mean Corpuscular Volume 82 fL (80-100); Monocytes Percent Auto 4.5 % (0.0-11.0); Neutrophils Percent Auto 73.6 % (42.0-72.0); Platelet Count* 299 K/uL (140-440); RDW Coefficient of Variation % 12.9 % (11.5-15.5); Red Blood Count 4.91 m/uL (4.00-5.20); White Blood Count* 15.89 K/uL (4.50-11.00)
[2024-10-11 14:56] LABS: Slide Review Reflex No
[2024-10-11 15:06] LABS: Albumin* 4.6 g/dL (3.3-5.0)
[2024-10-11 15:07] LABS: Chloride* 106 mmol/L (96-114); Potassium* 3.3 mmol/L (3.6-5.1); Sodium* 139 mmol/L (135-149)
[2024-10-11 15:09] LABS: Anion Gap 15 mEq/L (7-15); Aspartate Amino Transferase* 18 U/L (12-35); Bilirubin Total* 0.3 mg/dL (0.1-1.5); Carbon Dioxide* 18 mmol/L (20-32); Creatinine* 0.7 mg/dL (0.5-1.5); Est. Creatinine Clearance* 99.01; Estimated Glomerular Filt Rate 111 ml/min
[2024-10-11 15:10] LABS: Alanine Aminotransferase* 15 U/L (4-35); Alkaline Phosphatase* 67 U/L (40-150); Blood Urea Nitrogen* 8 mg/dL (5-24); Glucose* 104 mg/dL (60-115); Lipase* 59 U/L (23-300); Total Protein* 7.5 g/dL (6.0-8.3)
--- OUTSIDE RECORDS SUMMARY | 2024-10-11 15:20 | XMS_ITS | Clinical Summary ---
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 Gender Identity Not on file Sexual Orientation Not on file Last Filed Vital Signs Vital Sign Reading Time Taken Comments Blood Pressure 111/63 09/06/2021 10:24 PM OUTBOARD MOTORBOAT OPERATOR Pulse 69 09/06/2021 10:24 PM OUTBOARD MOTORBOAT OPERATOR Temperature 36.7 C (98.1 F) 09/06/2021 8:02 PM OUTBOARD MOTORBOAT OPERATOR Respiratory Rate 16 09/06/2021 10:24 PM OUTBOARD MOTORBOAT OPERATOR Oxygen Saturation 95% 09/06/2021 10:25 PM OUTBOARD MOTORBOAT OPERATOR Inhaled Oxygen Concentration - - Weight 75.8 kg (167 lb) 05/26/2015 8:33 PM CDT Height 170.2 cm (5' 7) 05/26/2015 8:33 PM CDT Body Mass Index 26.16 05/26/2015 8:33 PM CDT Plan of Treatment Not on file Insurance [facility] [place] [address] Care Teams Solution Designer Relationship Specialty Start Date End Date Brenna Hurd [facility] - General 01/27/13
--- OUTSIDE RECORDS SUMMARY | 2024-10-11 15:20 | XMS_ITS | Referral Summary ---
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 Gender Identity Not on file Sexual Orientation Not on file Last Filed Vital Signs Vital Sign Reading Time Taken Comments Blood Pressure 111/63 09/06/2021 10:24 PM ASSISTANT MANAGER/EMBALMER Pulse 69 09/06/2021 10:24 PM ASSISTANT MANAGER/EMBALMER Temperature 36.7 C (98.1 F) 09/06/2021 8:02 PM ASSISTANT MANAGER/EMBALMER Respiratory Rate 16 09/06/2021 10:24 PM ASSISTANT MANAGER/EMBALMER Oxygen Saturation 95% 09/06/2021 10:25 PM ASSISTANT MANAGER/EMBALMER Inhaled Oxygen Concentration - - Weight 75.8 kg (167 lb) 05/26/2015 8:33 PM CDT Height 170.2 cm (5' 7) 05/26/2015 8:33 PM CDT Body Mass Index 26.16 05/26/2015 8:33 PM CDT Plan of Treatment Not on file Insurance [facility] Care Teams Greenhouse Transplanter Relationship Specialty Start Date End Date Brenna Hurd [facility] - General 01/27/13
--- OUTSIDE RECORDS SUMMARY | 2024-10-11 15:20 | XMS_ITS | Clinical Summary ---
Author Organization [facility] Address [address] , [address] [place] [address] Phone Care Team Providers Care Grants Manager Name Role Phone Aura Moffett Unavailable [phone] Conditions or Problems Problem Name Problem Code Onset Date Status Entry Date Provider Comment Standard Description Annotate Migraine, menstrual 33653663 (SNOMED CT) Active Cory Verdugo MD Menstrual migraine Memory deficit 447094168 (SNOMED CT) Active Cory Verdugo MD Memory impairment Anxiety disorder 594168654 (SNOMED CT) Active Cory Verdugo MD Anxiety disorder Insomnia NEC 078629653 (SNOMED CT) Active Cory Verdugo MD Insomnia Chronic migraine 427187931 (SNOMED CT) Active Cory Verdugo MD Transformed migraine Medications Medication Instructions Start Date Stop Date Generic Name NDC Provider PROPRANOLOL HCL ER 80 MG [id number] 1 capsule or 80 mg/day by mouth propranolol [id number] Cory Verdugo MD TOPIRAMATE 25 MG TABS 1 tablet by mouth as directed : 25 mg per night for 2 weeks; then increase by 25 mg per night every 2 weeks until 100 mg per night or until pain controlled 03/05 topiramate [id number] Cory Verdugo MD QULIPTA 10 MG TABS 20 mg per day. May increase by 10 mg every week until 60 mg per day if lower doze not helping atogepant [id number] Cory Verdugo MD NORTRIPTYLINE HCL 75 MG CAPS Take 1 capsule by mouth every evening 03/05 nortriptyline [id number] Cory Verdugo MD SUMATRIPTAN SUCCINATE 100 MG TABS Take 1/2 tablet by mouth as directed as needed : half to 1 tab at onset of headache (STRONG); may repeat in 2 hour as needed; max 1.5 tabs per day; no more than 9 days use per month 03/05 sumatriptan succinate [id number] Cory Verdugo MD ATIVAN 1 MG TABS 1 tablet by mouth as directed : 1 mg 2 hour before MRI. May repeat as needed with 1 mg up to maximum of 3 mg before MRI. No driving or operate heavy machinery for 24 hour after taking this med 03/05 lorazepam [id number] Cory Verdugo MD CYCLOBENZAPRINE HCL 10 MG TABS Take 1 Tablet (10 mg) by mouth 3 times daily if needed for Muscle Spasm (headache).* cyclobenzaprine [id number] Cory Verdugo MD BUPROPION HCL ER (XL) 150 MG [id number] Take 1 Tablet (150 mg) by mouth once daily in the morning.* bupropion hcl [id number] Cory Verdugo MD [id number] FFEINE 50-325-40 MG TABS Take 1 Tablet by mouth every 4 hours if needed for Headache. Max 6 doses per day. Max acetaminophen dose 4000mg in 24 hrs.* butalbital-acetam inophen-caff [id number] Cory Verdugo MD TOPIRAMATE 25 MG TABS 1 tablet by mouth as directed : 25 mg per night for 2 weeks; then increase by 25 mg per night every 2 weeks until 100 mg per night or until pain controlled 03/05 topiramate [id number] Cory Verdugo MD NORTRIPTYLINE HCL 75 MG CAPS Take 1 capsule by mouth every evening 03/05 nortriptyline [id number] Cory Verdugo MD NORTRIPTYLINE HCL 75 MG CAPS Take 1 capsule by mouth every evening 12/28 nortriptyline [id number] Rosie Chacko BETTY NORTRIPTYLINE HCL 10 MG CAPS 1 capsule by mouth as directed : 20 mg per night; then increase by 10 mg/night every 2 weeks until maximum 70 mg/night or until pain controlled 12/01 nortriptyline [id number] Cory Verdugo MD NORTRIPTYLINE HCL 10 MG CAPS 2 capsule by mouth as directed : 20 mg per night; then increase by 10 mg/night every 2 weeks until maximum 70 mg/night or until pain controlled 12/28 nortriptyline [id number] Cory Verdugo MD SUMATRIPTAN SUCCINATE 25 MG TABS Take 1 tablet by mouth every two hours as needed 12/01 sumatriptan succinate [id number] Cory Verdugo MD NORTRIPTYLINE HCL 10 MG CAPS 1 capsule by mouth as directed : 20 mg per night; then increase by 10 mg/night every 2 weeks until maximum 70 mg/night or until pain controlled 12/01 nortriptyline [id number] Cory Verdugo MD SUMATRIPTAN SUCCINATE 100 MG TABS Take 1/2 tablet by mouth as directed as needed : half to 1 tab at onset of headache (STRONG); may repeat in 2 hour as needed; max 1.5 tabs per day; no more than 9 days use per month 03/05 sumatriptan succinate [id number] Cory Verdugo MD ATIVAN 1 MG TABS 1 tablet by mouth as directed : 1 mg 2 hour before MRI. May repeat as needed with 1 mg up to maximum of 3 mg before MRI. No driving or operate heavy machinery for 24 hour after taking this med 03/05 lorazepam [id number] Cory Verdugo MD TRAZODONE HCL 50 MG TABS Take 1-2 tablet every night trazodone [id number] Cory Verdugo MD IBUPROFEN 800 MG TABS Take 1 tablet by mouth three times a day as needed IBUPROFEN Cory Verdugo MD SUMATRIPTAN SUCCINATE 25 MG TABS Take 1 tablet by mouth every two hours as needed 12/01 sumatriptan succinate 54188986945 Cory Verdugo MD AZITHROMYCIN 250 MG TABS Take 500 mg today and then 250 mg days 2-5 12/01 azithromycin [id number] Cory Verdugo MD SERTRALINE HCL 100 MG TABS Take 2 tablet by mouth once a day sertraline 88306010913 Cory Verdugo MD TRAZODONE HCL 50 MG TABS Take 1-2 tablets at bedtime 12/01 trazodone [id number] QIEUSER QIEUSER SUMATRIPTAN SUCCINATE 25 MG TABS Take 1 Tablet (25 mg) by mouth every 2 hours if needed for Migraine. Max dose: 200mg per 24 hrs. 12/01 sumatriptan succinate [id number] QIEUSER QIEUSER SERTRALINE HCL 100 MG TABS TAKE 2 TABLETS [200MG] BY MOUTH ONCE A DAY 12/01 sertraline [id number] QIEUSER QIEUSER IBUPROFEN 800 MG TABS Take 1 Tablet (800 mg) by mouth 3 times daily if needed for Pain. 12/01 IBUPROFEN QIEUSER QIEUSER AZITHROMYCIN 250 MG TABS Take 500 mg today and then 250 mg days 2-5 12/23 azithromycin [id number] QIEUSER QIEUSER Medications Administered No information available. Allergies, Adverse Reactions, Alerts No information available. Results Date Name Value Unit Range Flag Description Internal Other: Observation data from Authorization.pdf HIECONSENT Y Consent To Release information to the [employer] Information Exchange (Relevant Media) Office Visit: Office Visit braulio [place] fax [...] Name Date Entry Date ORDERS Patient Instructions [facility]-[id number] Documentation of current medicatio ns ORDERS Follow up with Neurologist or [facility] [id number] MRI Brain W/O [id number] MRI-Brain W/O ORDERS Patient Instructions [facility]-[id number] Documentation of current medicatio ns Vital Signs Date Name Value Unit Description Heart Rate 66 /min pulse rate Immunizations No information available. Advance Directives No information available.
--- OUTSIDE RECORDS SUMMARY | 2024-10-11 15:20 | XMS_ITS | Clinical Summary ---
Author Organization [employer] Address [place], [place] [address] Care Team Providers Care Thread Grinder Tool Name Role Phone Brenna Hurd MD Primary Care Provide r Sommer Walker RD Unavailable [phone] Allergies No known active allergies Medications [...] cervix 06/15/2012 Overview (08/25/2022): 06/15/2012: LSIL 07/27/2012: Marana - Suspicious for HPV 07/19/2013: NIL 06/25/2014: [...] Department Care Team Description 10/11/2024 Nurse Triage [facility] [address] [place] [address] Brenna Hurd MD Diarrhea; Abdominal Pain 10/05/2024 1:00 PM TELETYPEWRITER INSTALLER Telemedicine [facility] [place] [address] [place] [address] Teresa Sabillon PA Telehealth; Follow Up ([facility] follow up ) 10/02/2024 Travel 09/18/2024 3:00 PM TELETYPEWRITER INSTALLER Telemedicine [facility] [address] [place] [address] Telehealth ([facility] follow up) 09/17/2024 Travel 08/17/2024 2:30 PM TELETYPEWRITER INSTALLER Telemedicine [facility] [place] [address] [place] [phone] Teresa Sabillon PA Telehealth; Follow Up ([facility] follow up ) 08/12/2024 Travel 08/07/2024 Telephone [facility] [place] [address] [place] [phone] [address] Follow Up 08/01/2024 9:15 AM TELETYPEWRITER INSTALLER Orders Only [facility] [address] [address] [id number] Lab, [facility] 07/31/2024 Travel 07/24/2024 Telephone [facility] [place] [address] [place] [phone] Teresa Sabillon PA Weight Management 07/18/2024 10:00 AM TELETYPEWRITER INSTALLER Telemedicine [facility] [place] [address] [place] [phone] [address] Medical Nutrition Therapy ([facility] initial, telehealth) 07/18/2024 9:00 AM TELETYPEWRITER INSTALLER Telemedicine [facility] [place] [address] [place] [phone] Teresa Sabillon PA Telehealth; Follow Up (Initial [facility] ) 07/17/2024 Travel from Last 3 Months Immunizations Name Administration Dates Next Due COVID-19 vaccine (Cokonnect-Bio NTThumbAd 30mcg/0.3mL) 12YO+ BIVALENT PF, MDV 07/22/2022 Human Papilloma Virus Vaccine 09/03/2008, 007 Influenza, IIV4 07/04/2022,,07/29/2020, 016,07/25/2014 Tdap 12/10/2014,09/03/2008 Family History Medical History Relation Name Comments Diabetes Father Geo Heart Disease Father Geo Heart attack, age 50s Cancer Maternal Grandfather [...] = 0.6 oz pur e alcohol) 1x/month [facility] Utilities Answer Date Recorded Do you have [...] on file Legal Sex Female 5:44 AM TELETYPEWRITER INSTALLER Gender Identity Not on file Sexual Orientation [...] 36.7 C (98 F) 08/31/2023 10:05 AM TELETYPEWRITER INSTALLER Respiratory Rate 16 08/31/2023 10:05 AM TELETYPEWRITER INSTALLER Oxygen Saturation 99% 03/01/2024 2:58 PM CDT Inhaled Oxygen Concentration - - Weight 90.3 kg (199 lb) 10/05/2024 12:43 PM TELETYPEWRITER INSTALLER Height 167.6 cm (5' 5.98) 10/05/2024 12:[address] Body Mass Index 32.14 10/05/2024 12:43 PM TELETYPEWRITER INSTALLER Plan of Treatment Upcoming Encounters Date Type Department Care Team (Late st Contact Info) Description 10/23/2024 10:00 AM TELETYPEWRITER INSTALLER Telemedicine [facility] [address] [place] [address] [place] [address] 11/23/2024 1:00 PM CDT Telemedicine [facility] [place] [address] [place] [phone] Teresa Sabillon PA [address] [place] [address] Health Maintenance Due Date Last Done Comments [...] REFLEX MEASURED LDL Routine 08/01/2024 8:58 AM TELETYPEWRITER INSTALLER Class 1 obesity with body mass index (BMI) of 30.0 to 30.9 in adult, unspecified obesity type, unspecified whether serious comorbidity present Screening for metabolic disorder VITAMIN D 25 (DEFICIENCY) Routine 08/01/2024 8:58 AM TELETYPEWRITER INSTALLER Class 1 obesity with body mass index (BMI) of 30.0 to 30.9 in adult, unspecified obesity type, unspecified whether serious comorbidity present Encounter for vitamin deficiency screening INSULIN Routine 08/01/2024 8:58 AM TELETYPEWRITER INSTALLER Class 1 obesity with body mass index (BMI) of 30.0 to 30.9 in adult, unspecified obesity type, unspecified whether serious comorbidity present Screening for metabolic disorder TSH WITH REFLEX Routine 08/01/2024 8:58 AM TELETYPEWRITER INSTALLER Class 1 obesity with body mass index (BMI) of 30.0 to 30.9 in adult, unspecified obesity type, unspecified whether serious comorbidity present Screening for metabolic disorder COMP METABOLIC PANEL Routine 08/01/2024 8:58 AM TELETYPEWRITER INSTALLER Class 1 obesity with body mass index (BMI) of 30.0 to 30.9 in adult, unspecified obesity type, unspecified whether serious comorbidity present Screening for metabolic disorder HEMOGLOBIN Routine 08/01/2024 8:58 AM TELETYPEWRITER INSTALLER Class 1 obesity with body mass index (BMI) of 30.0 to 30.9 in adult, unspecified obesity type, unspecified whether serious comorbidity present HEMOGLOBIN A1C Routine 08/01/2024 8:58 AM TELETYPEWRITER INSTALLER Class 1 obesity with body mass index (BMI) of 30.0 to 30.9 in adult, unspecified obesity type, unspecified whether serious comorbidity present VITAMIN B12 Routine 08/01/2024 8:58 AM TELETYPEWRITER INSTALLER Class 1 obesity with body mass index (BMI) of 30.0 to 30.9 in adult, unspecified obesity type, unspecified whether serious comorbidity present Encounter for vitamin deficiency screening HPV HIGH RISK Routine 07/22/2022 9:20 AM TELETYPEWRITER INSTALLER Screening for cervical cancer ANTI HIV 1/2 Routine 06/21/2014 3:17 PM CDT ANTI HCV Routine 06/21/2014 3:17 PM CDT from Last 3 Months or Most Recently Relevant to Health Maintenance Results * HEMOGLOBIN A1C (08/01/2024 8:58 AM TELETYPEWRITER INSTALLER) HEMOGLOBIN A1C 5.4 <5.7 % of total Hgb [facility] Comment: For the purpose of screening for the presence of diabetes: <5.7% Consistent with the absence of diabetes 5.7-6.4% Consistent with increased risk for diabetes (prediabetes) > or =6.5% Consistent with diabetes This assay result is consistent with a decreased risk of diabetes. Currently, no consensus exists regarding use of hemoglobin A1c for diagnosis of diabetes in children. According to [place] Diabetes Association (ADA) guidelines, hemoglobin A1c <7.0% represents optimal control in non- diabetic patients. Different metrics may apply to specific patient populations. Standards of Medical Care in Diabetes(ADA). Blood BLOOD SPECIMEN / Unknown 08/01/2024 8:58 AM TELETYPEWRITER INSTALLER 08/01/2024 8:58 AM TELETYPEWRITER INSTALLER Teresa MORA CHEMISTRY Final Result [facility] ([facility]) [facility] [address] [place] [address], [facility] [address] [place] [address] * TSH WITH REFLEX (08/01/2024 8:58 AM TELETYPEWRITER INSTALLER) TSH W/REFLEX TO FT4 1.56 mIU/L [facility] caridad Valerio Comment: Reference Range > or = 20 Years 0.40-4.50 Ranges First trimester 0.26-2.66 Second trimester 0.55-2.73 Third trimester 0.43-2.91 Blood BLOOD SPECIMEN / Unknown 08/01/2024 8:58 AM TELETYPEWRITER INSTALLER 08/01/2024 8:58 AM TELETYPEWRITER INSTALLER Teresa MORA CHEMISTRY Final Result [facility] (V3[facility]) [facility] [address] [place] [address], [facility] [address] [place] [address] * (ABNORMAL) LIPID PANEL W REFLEX MEASURED LDL (08/01/2024 8:58 AM TELETYPEWRITER INSTALLER) CHOLESTEROL, TOTAL 176 <200 mg/dL [facility] ocaridad Sharmae HDL CHOLESTEROL 47(L) > OR = 50 mg/dL [facility] o Teodoro TRIGLYCERIDES 158(H) <150 mg/dL [facility] LDL-CHOLESTEROL 104(H) mg/dL (calc) [facility]car[facility] [...] Juan Carlos WYNNE et al. LAITH. 2013;310(19): 4999-2274 (http://education.MarketShare.Scodix/faq/OTS602) CHOL/HDLC RATIO 3.7 <5.0 (calc) [facility] NON HDL CHOLESTEROL 129 <130 mg/dL (calc) [facility] Valerio Comment: For patients with diabetes plus 1 major ASCVD risk factor, treating to a non-HDL-C goal of <100 mg/dL (LDL-C of <70 mg/dL) is considered a therapeutic option. Blood BLOOD SPECIMEN / Unknown 08/01/2024 8:58 AM TELETYPEWRITER INSTALLER 08/01/2024 8:58 AM TELETYPEWRITER INSTALLER us Teresa MORA CHEMISTRY Final Result Performing Organization Address [facility] [address] [facility] Co de Phone Number [facility] (V3[facility]) [facility] [address] [place] [address], [facility] [address] [place] [phone] * (ABNORMAL) VITAMIN D 25 (DEFICIENCY) (08/01/2024 8:58 AM TELETYPEWRITER INSTALLER) VITAMIN D,25-OH,TOTAL,IA 20(L) 30 - 100 ng/mL [facility] shital Valerio Comment: Vitamin D Status 25-OH Vitamin D: Deficiency: <20 ng/mL Insufficiency: 20 - 29 ng/mL Optimal: > or = 30 ng/mL For 25-OH Vitamin D testing on patients on D2-supplementation and patients for whom quantitation of D2 and D3 fractions is required, the [facility]() 25-OH VIT D, (D2,D3), LC/MS/MS is recommended: order code [id number] (patients >2yrs). See Note 1 Note 1 For additional information, please refer to http://education.MarketShare.Scodix/faq/THB250 (This link is being provided for informational/ educational purposes only.) Blood BLOOD SPECIMEN / Unknown 08/01/2024 8:58 AM TELETYPEWRITER INSTALLER 08/01/2024 8:58 AM TELETYPEWRITER INSTALLER us Teresa MORA SEND OUTS Final Result Performing Organization Address [facility] [address]/ZIP Co de Phone Number [facility] (V3D) [facility] [address] [place] [address], [place] [phone] [facility] [address] [facility] [place] [address] * HEMOGLOBIN (08/01/2024 8:58 AM TELETYPEWRITER INSTALLER) [facility] HEMOGLOBIN 12.1 11.7 - 15.5 g/dL [facility] re[facility]aldo Valerio Blood BLOOD SPECIMEN / Unknown 08/01/2024 8:58 AM TELETYPEWRITER INSTALLER 08/01/2024 8:58 AM TELETYPEWRITER INSTALLER us Teresa MORA HEMATOLOGY Final Result Performing Organization Address [facility] [address]/ZIP Co de Phone Number [facility] [address] [place] [address], [facility] [address] [place] [address] * (ABNORMAL) INSULIN (08/01/2024 8:58 AM TELETYPEWRITER INSTALLER) [facility] INSULIN 21.3(H) uIU/mL [facility] Te[facility] Comment: Reference Range < or = 18.4 Risk: Optimal < or = 18.4 Moderate NA High >18.4 Adult cardiovascular event risk category cut points (optimal, moderate, high) are based on Insulin Reference Interval studies performed at [facility] in 2021. Blood BLOOD SPECIMEN / Unknown 08/01/2024 8:58 AM TELETYPEWRITER INSTALLER 08/01/2024 8:58 AM TELETYPEWRITER INSTALLER us Teresa MORA SEND OUTS Final Result [facility] [address] [place] [address], [facility] [address] [place] [address] * VITAMIN B12 (08/01/2024 8:58 AM TELETYPEWRITER INSTALLER) [facility] VITAMIN B12 325 200 - 1,100 pg/mL [...] BLOOD SPECIMEN / Unknown 08/01/2024 8:58 AM TELETYPEWRITER INSTALLER 08/01/2024 8:58 AM TELETYPEWRITER INSTALLER Teresa MORA CHEMISTRY Final Result [facility] (V3[facility]) [facility] [address] [place] [address], [employer] [address] [place] [address] * COMP METABOLIC PANEL (08/01/2024 8:58 AM TELETYPEWRITER INSTALLER) [facility] GLUCOSE 90 65 - 99 mg/dL [facility] Comment: Fasting reference interval UREA [...] BLOOD SPECIMEN / Unknown 08/01/2024 8:58 AM TELETYPEWRITER INSTALLER 08/01/2024 8:58 AM TELETYPEWRITER INSTALLER us Teresa MORA CHEMISTRY Final Result Performing Organization Address [facility] [address]/ZIP Co de Phone Number [facility] (V[facility]) [facility] [address] [place] [address], [facility] [address] [place] [address] * HPV HIGH RISK (07/22/2022 9:20 AM TELETYPEWRITER INSTALLER) TYPE 16 Negative Negative 07/24/2022 12:43 PM TELETYPEWRITER INSTALLER [facility] TYPE 18 Negative Negative 07/24/2022 12:43 PM TELETYPEWRITER INSTALLER [facility] OTHER HIGH RISK TYPES Negative Negative 07/24/2022 12:43 PM TELETYPEWRITER INSTALLER [facility] Other (Cervical) Non-Blood / Unknown 07/22/2022 9:20 AM TELETYPEWRITER INSTALLER 07/23/2022 8:26 AM TELETYPEWRITER INSTALLER Narrative [facility] - 07/24/2022 12:43 PM TELETYPEWRITER INSTALLER HPV types 16, 18, 31, 33, 35, 39, 45, 51, 52, 56, 58, 59, 66 and 68 DNA were undetectable or below the pre-set threshold. Methodology: [employer] Liu 4800 HPV Test us Brenna Hurd MD MICROBIOLOGY Final Result [facility] [address] [place] [address], [place] * ANTI HCV (06/21/2014 3:17 PM CDT) HEPATITIS C ANTIBODY Non-Reacti ve Non-Reacti ve 06/22/2014 4:00 PM CDT [facility] Blood specimen (specimen) BLOOD SPECIMEN / Unknown Venipuncture / Unknown 06/21/2014 3:17 PM CDT 06/21/2014 3:[address] [facility] LABOR[facility] - 06/22/2014 4:00 PM CDT Antibodies to HCV not detected; does not exclude the possibility of exposure to HCV. Massiel MORA SEND OUTS Final R esult [facility] [address] [place] [address], [place] * ANTI HIV 1/2 (06/21/2014 3:17 PM CDT) Pathologist [facility] HIV-1/HIV-2 ANTIBODY Non-Reacti ve Non-Reacti ve 06/21/2014 8:58 PM CDT [facility] Blood specimen (specimen) BLOOD SPECIMEN / Unknown Venipuncture / Unknown 06/21/2014 3:17 PM CDT 06/21/2014 3:18 PM CDT Narrative [facility] - 06/21/2014 8:58 PM CDT HIV-1 p24 and HIV-1/HIV-2 Ab not detected Massiel MORA SEND OUTS Final R esult [facility] [address] [place] [phone], [place] from Last 3 Months or Most Recently Relevant to Health Maintenance Insurance [employer] Care Teams Thread Grinder Tool Relationship Specialty Start Date End Date Brenna Hurd MD [address] [place] [address] PCP - General 10/11/[address] [place] [address] Registered Dietitian Occ Therapy Asst 07/18/24
--- OUTSIDE RECORDS SUMMARY | 2024-10-11 15:20 | XMS_ITS | Encounter Summary ---
Author Organization [employer] Address [address] [place] [address] Care Team Providers Care Cad Drafter Name Role Phone Brenna Hurd Primary Care Provider [phone] Encounter Details Date Type Department Care Team [...] on file Legal Sex Female 3:15 AM CHIEF CONCIERGE Gender Identity Not on file Sexual Orientation Not on file COVID-19 Exposure Response Date Recorded In the last month, have you been in contact with someone who was confirmed or suspected to have Coronavirus / COVID-19? No / Unsure 09/06/2021 7:58 PM CHIEF CONCIERGE documented as of this encounter Plan of Treatment Not on file documented as of this encounter Visit Diagnoses Not on filedocumented in this encounter Care Teams Cad Drafter Relationship Specialty Start Date End Date Brenna Hurd PCP - General 01/27/13 documented as of this encounter
[2024-10-11 15:35] LABS: HCG Qualitative Serum* Negative (Negative)
[2024-10-11 16:16] VITALS: BP 104/54; PULSE 69; RESP 16; O2SAT 99
== END 2024-10-11 17:46 | disposition home or self-care (01) ==
PROVIDERS: Emergency Provider Emergency Medicine; PCP Family Medicine
DX: R10.9 Unspecified abdominal pain (principal); R19.7 Diarrhea, unspecified
CPT/HCPCS: 36415; 74177; 80053; 81001; 81025; 83690; 84703; 85025; 87045; 87046; 87427; 96374; 99284; J1885; J2405; J7030; Q9967